=== PATIENT | male | born 2000 | race Hispanic/Latino ===

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

== ENCOUNTER 2020-07-02 22:16 | Emergency (ER) | payer OTHER ==
[~2020-07-02 22:16] MED LIST changes: +LEVE-43 PO; -LEVE500T8 PO
== END 2020-07-02 23:18 | disposition home or self-care (01) ==
LOC: EDH 22:16
DX: S01.81XA Laceration without foreign body of other part of head, initial encounter (principal); F10.129 Alcohol abuse with intoxication, unspecified; R07.89 Other chest pain; M25.561 Pain in right knee; W18.39XA Other fall on same level, initial encounter; Y93.89 Activity, other specified; Y92.89 Other specified places as the place of occurrence of the external cause; Y99.8 Other external cause status
CPT/HCPCS: 99281